=== PATIENT | female | born 1955 | race Caucasian/White ===

== ENCOUNTER 2020-04-11 15:55 | Emergency (ER) | payer MEDICAID ==
[~2020-04-11] VITALS: Ht 152.4 cm; Wt 71.7 kg
[2020-04-11 16:03] VITALS: BP 103/56
--- NOTE | 2020-04-11 16:05 | NUR ---
65 Y/O FEMALE FROM HOME C/O FEVER AND COUGH. PT STATES SHE WAS TESTED FOR COVID TODAY. RR EVEN AND UNLABORED, DOES NOT APPEAR TO BE IN ANY DISTRESS. LAST TOOK TYLENOL AT 1230. DENIES N/V/D. AWAKE AND ALERT. VSS MEDHX: DENIES
--- NOTE | 2020-04-11 16:05 | NUR ---
PT PLACED IN TENT FOR COVID PRECAUTIONS
--- NOTE | 2020-04-11 16:14 | NUR ---
FLACO TORO IN TENT EXAMINING PT
[2020-04-11 16:32] VITALS: BP 103/56
--- NOTE | 2020-04-11 16:32 | NUR ---
Patient discharged with v/s stable. Written and verbal after care instructions given and explained. Patient alert, oriented and verbalized understanding of instructions. Ambulatory with steady gait. All questions addressed prior to discharge. ID band removed. Patient advised to follow up with PMD. Rx of Promethazine DM 6.25mg-15mg/5ml and Tylenol Extra Strength given. Patient educated on indication of medication including possible reaction and side effects. Opportunity to ask questions provided and answered.
== END 2020-04-11 16:32 | disposition home or self-care (01) ==
LOC: MED 15:55
DX: B34.9 Viral infection, unspecified (principal); Z20.828 Contact with and (suspected) exposure to other viral communicable diseases
CPT/HCPCS: 99283